=== PATIENT | female | born 1960 | race Caucasian/White ===

== ENCOUNTER 2017-02-16 11:15 | Inpatient (IN) | payer OTHER ==
[2017-02-08 09:33] LABS: BASOPHILS 0.2 %; BASOPHILS ABSOLUTE 0.02 10/3/uL (0.0-0.16); EOSINOPHILS 1.9 %; EOSINOPHILS ABSOLUTE 0.18 10/3/uL (0.0-0.53); IMMATURE GRANULOCYTES 0.5 %; IMMATURE GRANULOCYTES ABSOLUTE 0.05 10/3/uL (0.0-0.11); LYMPHOCYTES 15.8 %; LYMPHOCYTES ABSOLUTE 1.53 10/3/uL (0.67-4.30); MEAN CORPUS HGB CONC 34.9 g/dL (32.0-36.0); MEAN CORPUSCULAR HEMOGLOB 30.7 pg (26.0-34.0); MEAN PLATELET VOLUME 8.9 fL (9.2-13.0); MONOCYTES 6.3 %; MONOCYTES ABSOLUTE 0.61 10/3/uL (0.21-1.20); NEUTROPHILS 75.3 %; NEUTROPHILS ABSOLUTE 7.28 10/3/uL (2.02-8.40); RBC DISTRIBUTION WIDTH 12.5 % (12.0-16.0); WHITE BLOOD CELLS 9.7 10/3/uL (4.5-10.5)
[2017-02-08 09:36] LABS: HEMATOCRIT 38.1 % (36.0-48.0); HEMOGLOBIN 13.3 g/dL (12.0-16.0); MANUAL DIFF NO %; PLATELET COUNT 283 10/3/uL (150-400); RED CELL COUNT 4.33 10/6/uL (4.0-5.6)
[2017-02-08 09:52] LABS: ASCORBIC ACID (UR NOT ORDER) NEG (NEG); BILIRUBIN, URINE NEGATIVE (NEG); INTERNATIONAL NORMAL RATI 1.1 UNITS (-); KETONE, URINE NEGATIVE (NEG); LEUKOCYTE ESTERASE(NOT OR NEG (NEG); PARTIAL THROMBO TIME 27.1 SEC (22.5-37.2); PROTIME (NOT ORD) 13.6 SEC (12.0-14.5); WBC (NOT ORDERED) (RFLEX) < 1 (0-5)
[2017-02-08 09:53] LABS: A/G RATIO 1.3 (0.7-1.9); ALBUMIN 3.7 G/DL (3.5-5.0); ALKALINE PHOSPHATASE 80 U/L (45-117); BUN (BLOOD UREA NITROGEN) 16 MG/DL (6-23); CALCIUM, SERUM 9.2 MG/DL (8.5-10.4); CHLORIDE, SERUM 107 MMOL/L (96-112); CO2 (CARBON DIOXIDE) 29 MMOL/L (24-34); GFR AFRICAN AMERICAN 72 ML/MIN (>=60); GFR NON AFRICAN AMERICAN 62 ML/MIN (>=60); GLOBULIN 2.8 G/DL (2.5-4.1); SGOT(AST) 10 U/L (5-40); SGPT(ALT) 21 U/L (5-65); SODIUM, SERUM 141 MMOL/L (135-148); TOTAL BILIRUBIN 0.4 MG/DL (0-1.2); TOTAL PROTEIN 6.5 G/DL (6.0-8.5)
[2017-02-08 09:54] LABS: GLUCOSE, SERUM 127 MG/DL (60-99)
--- NOTE | ~2017-02-16 | OP ---
Record Of Operation [facility] [address] [place]. 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 PROCEDURE PERFORMED: Left total knee revision of tibia. SURGEON: Dunia Guillen M.D. DEPUTY COMMISSIONER: Tim Jennings. ANESTHESIA: Adductor block, local infusion, and general. HISTORY INDICATIONS: Ms. Esquivel is a pleasant 56-year-old woman who is now 10 years out from a left total knee arthroplasty. She had been doing rather well. This was performed out of town. Recently being in the [facility]. She was assessed with instability and pain. It was noted to have tibial component subsidence resulting in gross instability of her knee and pain. She presents now for treatment. PROCEDURE IN DETAIL: The patient is clearly identified, and after obtaining informed consent, she is brought to the operating room at [facility] where she is induced under general anesthesia, has her left lower extremity prepped and draped in the usual manner. This concluded, after appropriate time-out procedure is performed, HAILE exsanguination is performed. Tourniquet is elevated to 350 mmHg and successfully tested, at which point, the anterior approach of the knee is made, skin is divided, fascial planes are elevated, one Ethibond suture is encountered and removed along the vastus medialis. Entering the joint, there is a synovitis which is all resected for formal synovectomy. The patellar component is well-positioned and fixed, however, there is some scuffing along its surface which is treated carefully with a rongeur to smooth it nicely as this all did localize to proceed with a patella revision given some scuffing. The femoral component is without pathology, is well fixed and in good position of alignment and the tibial component after removing the RP polyethylene which sized to 3 reveals significant subsidence and by just gently placing an elevator under the tibial component after freshening the soft tissues around and removing some of the circumferential bone around the component given its significant subsidence of what appears to be at least 5 or 6 mm deep. Component itself just gently lifted out of the wound. The cement mantle is present, but has some cracking to it. It is carefully removed. There is a significant fibrous coating to the tibia, which is all removed as well, and after freshening the tissues and irrigating, the tibia is carefully reamed to 14 trialing and preparing after proximal freshening is made after placing a small sleeve is done. Trialing is excellent and the permanent tibial component is carefully cemented into position with antibiotic laden cement, and at this point, after having sent cultures earlier Gram stain reveals rare white cells, no organisms. We proceed with Record Of Operation [address] [place]. [address] NAME: JAVID ESQUIVEL : 58 STATUS : ADM IN PAT#: [id number] AGE: 56 ADM/REG DATE : 02/16/17 MR#: [id number] REPORT SERV DATE: 02/16/17 DICTATED BY: DUNIA GUILLEN DATE: 02/16/17 REPORT STATUS : Draft TRANSCRIBED BY: MODBarrera DATE: 02/16/17 permanent implant uneventfully placing the 20 mm polyethylene. There is excellent extension and flexion to nearly 100, which revealed the patient size is quite good. There is no varus valgus instability throughout. There is excellent patellofemoral tracking without evidence of pathology. This concluded and after having deflated the tourniquet, utilizing tranexamic acid and local infusion, a standard technique during this portion of the case with minimal bleeding in the area that is copiously irrigated again, drain is applied, and the knee is then carefully closed in layers, cleansed and dressed. The patient is allowed to awaken and is transferred to the recovery room in stable condition having tolerated the procedure well. ESTIMATED BLOOD LOSS: 100 mL. FLUIDS: 1300 mL. TOURNIQUET TIME: 66 minutes. PATHOLOGY: Sent specimen. MICROBIOLOGY: Sent specimen. COMPLICATIONS: None. SPONGE AND NEEDLE COUNTS: Correct. IMPLANTS: Replaced include a DePuy Sigma, revision of tibial component size 2 with a 114 x 75 stem and a 29 cemented sleeve as well as a 20 mm RP polyethylene. JN/MODL Dunia Guillen M.D. / [id number] CC: Priyanka Randhawa M.D.
[~2017-02-16 11:15] MED LIST: ADVIL PO; ALLEGRA180 PO; FLONASE NAS; FLUTICASONE NAS; HYDROCHLOROT25 MG PO; KLOR-CON M2020 MEQ PO; LORT7 PO; MEVACOR PO; PRAVACHOL40 MG PO; PRILOSEC40 MG PO; PRIN20 PO; RANITIDINE300 MG PO; ZOL50 PO
[2017-02-17 04:34] LABS: HEMATOCRIT 36.6 % (36.0-48.0); HEMOGLOBIN 12.4 g/dL (12.0-16.0)
[2017-02-17 04:37] LABS: INTERNATIONAL NORMAL RATI 1.1 UNITS (-); PROTIME (NOT ORD) 14.1 SEC (12.0-14.5)
[2017-02-17 04:39] LABS: BUN (BLOOD UREA NITROGEN) 18 MG/DL (6-23); CHLORIDE, SERUM 102 MMOL/L (96-112); CO2 (CARBON DIOXIDE) 27 MMOL/L (24-34); CREATININE 1.08 MG/DL (0.55-1.02); GFR AFRICAN AMERICAN 66 ML/MIN (>=60); GFR NON AFRICAN AMERICAN 57 ML/MIN (>=60); POTASSIUM, SERUM 4.3 MMOL/L (3.5-5.3); SODIUM, SERUM 137 MMOL/L (135-148)
[2017-02-17 04:40] LABS: CALCIUM, SERUM 8.2 MG/DL (8.5-10.4); GLUCOSE, SERUM 165 MG/DL (60-99)
[2017-02-18 05:31] LABS: HEMATOCRIT 34.2 % (36.0-48.0); HEMOGLOBIN 11.6 g/dL (12.0-16.0)
[2017-02-18 05:39] LABS: INTERNATIONAL NORMAL RATI 1.3 UNITS (-); PROTIME (NOT ORD) 15.8 SEC (12.0-14.5)
[2017-02-18] MEDS ORDERED: OXYCOD PO (10:22)
[2017-02-18] MEDS ORDERED: C5 (10:22)
== END 2017-02-18 13:30 | disposition home or self-care (01) | DRG 467 ==
LOC: SDC/OF 11:15 → 3JRC 19:36
PROVIDERS: Orthopaedic Surgery
PROC: 3E0T3CZ (ICD-10-PCS; 2017-02-16)
PROC: 0SWD0JZ Revision of Synthetic Substitute in Left Knee Joint, Open Approach (ICD-10-PCS; principal; 2017-02-16 13:30)
DX: T84.033A Mechanical loosening of internal left knee prosthetic joint, initial encounter (principal); Z68.42 Body mass index [BMI] 45.0-49.9, adult; I10 Essential (primary) hypertension; K21.9 Gastro-esophageal reflux disease without esophagitis; F32.9 Major depressive disorder, single episode, unspecified; E78.5 Hyperlipidemia, unspecified; Z79.899 Other long term (current) drug therapy; Z88.2 Allergy status to sulfonamides; E66.9 Obesity, unspecified; G47.33 Obstructive sleep apnea (adult) (pediatric)
CPT/HCPCS: 36415; 71020; 73560-LT; 80048; 80053; 81001; 85014; 85018; 85025; 85610; 85730; 86850; 86900; 86901; 87015; 87070; 87075; 87102; 87116; 87205; 87641; 88300; 88304; 88311; 93005; 97110-GP; 97116-GP; 97150-GP; 97161-GP; 97165-GO; A9270-GY; C1776; J0690; J1885; J2250; J2270; J2405; J2710; J2795; J3010